=== PATIENT | male | born 1935 | race Caucasian/White ===

== ENCOUNTER 2016-03-25 08:57 | Day surgery (SDC) | payer MEDICARE ==
[~2016-03-25] VITALS: Ht 177.8 cm; Wt 75.3 kg
[~2016-03-25 08:57] MED LIST: AMLO2.5T PO; CARV3.122 PO; CEFAZOLIN 2GM PREMIX 50 ML IV PRN; DOCU-27 PO; FENTANYL PF 100 MCG/2 ML VIAL. IV PRN; HYDR-2679 PO; HYDROMORPHONE 2 MG/ML VIAL. IV PRN; Hydrocodone/Acetaminophen PO; IV RINGERS,LACTATED 1000ML 1,000 ML IV SCH; LEVO150T5 PO; LIDOCAINE 1% 1 ML SYRINGE. ID PRN; LOSA1TAB18 PO; MORPHINE SULFATE 2 MG/ML DISP.SYRIN. IV PRN; ONDANSETRON PF 4 MG/2 ML VIAL. IV PRN; POTA10TA17 PO; PROCHLORPERAZINE 10 MG/2 ML VIAL. IV PRN
--- NOTE | 2016-03-25 09:49 | EKG ---
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
[2016-03-25] MEDS ORDERED: BUPIVAC MPF-EPI 0.5%-1:200000 30 ML VIAL. ONE (10:18)
[2016-03-25] MEDS ORDERED: FENTANYL PF 100 MCG/2 ML VIAL. ONE (10:32)
[2016-03-25] MEDS ORDERED: PROPOFOL 20 ML IV ONE (10:32)
[2016-03-25] MEDS ORDERED: SUCCINYLCHOLINE 200 MG/10 ML VIAL. ONE (10:37)
[2016-03-25] MEDS ORDERED: ROCURONIUM 50 MG/5 ML VIAL. ONE (10:38)
--- NOTE | 2016-03-25 11:07 | PDOC ---
SURGICAL PROGRESS NOTE Subjective 80 yo M with RIH, symptomatic TO OR for repair with mesh R/B/a d/w pt and pt's Office note H&P reviewed and unchanged Vital Signs Vital Signs Date Time Temp Pulse Resp B/P Pulse Ox O2 Delivery O2 Flow Rate FiO2 03/25/16 09:30 98.6 61 16 126/75 Room Air 98.6 MANDA SAUCEDO MD Mar 25, 2016 11:07
[2016-03-25] MEDS ORDERED: PHENYLEPHRINE in 0.9% NACL PF 1 MG/10 ML DISP.SYRIN. IV ONE (11:21)
[2016-03-25] MEDS ORDERED: ONDANSETRON PF 4 MG/2 ML VIAL. ONE (11:31)
[2016-03-25] MEDS ORDERED: KETOROLAC 30 MG/ML SYRINGE FOR OR. INJ ONE (11:51)
[2016-03-25] MEDS ORDERED: GLYCOPYRROLATE 1 MG/5 ML VIAL. ONE (12:07)
[2016-03-25] MEDS ORDERED: NEOSTIGMINE METHYLSULFATE 5 MG/5 ML SYRINGE. ONE (12:08)
[2016-03-25] MEDS ORDERED: HYDR-2678 PO (12:43)
[2016-03-25] MEDS ORDERED: DOCU-27 PO (12:44)
[2016-03-25 13:25] VITALS: BP 124/71
[2016-03-25] MEDS ORDERED: HYDROCODONE/APAP 5/325MG TABLET. PO ONE (13:30)
--- NOTE | 2016-03-25 14:03 | PDOC ---
BRIEF OPERATIVE NOTE Pre-Op Diagnosis RIH Post-Op Diagnosis same Procedure Performed RIh repair with mesh Surgeon Myrna Anesthesia Type: General, Local Blood Loss 30 IV Fluid 600 Complications none Additional Remarks [id number] MANDA SAUCEDO MD Mar 25, 2016 14:03
--- NOTE | 2016-03-25 15:08 | OP ---
DATE OF SURGERY: 03/25/2016 REFERRING PHYSICIAN: Caitlin Vivek Braxton. Thank you for the consult. PREOPERATIVE DIAGNOSIS: Right inguinal hernia. POSTOPERATIVE DIAGNOSIS: Right inguinal hernia, direct hernia. PROCEDURE: Right inguinal hernia repair with mesh plug. SURGEON: Moustapha Saucedo MD ESTIMATED BLOOD LOSS: 30. COMPLICATIONS: None. INDICATIONS: This is a 80-year-old male who presents with complaints of right groin bulge. He reports some soreness with this and requests surgical repair. The patient and patient's were informed of the risks, benefits and alternatives of the procedure, risks including but not limited to bleeding, infection, damage to surrounding structures, risks of anesthesia, risks of hernia recurrence. The patient and patient's appeared to understand and their insightful questions were answered and they agreed to proceed. DESCRIPTION OF PROCEDURE: After obtaining informed consent, the patient was taken to the operating room, induced under general endotracheal anesthetic. The patient was prepped and draped in the usual fashion in the right groin area. Marcaine 0.5% with epinephrine was injected in this area and transverse incision was made using electrocautery. Subcutaneous tissues were divided using electrocautery. Superficial pudendal vein was divided using electrocautery. External oblique was identified by the direction of its fibers. It was opened using Metzenbaum scissors. The ileoinguinal nerve was readily identifiable and appeared to be slightly involved in the hernia, now such that it was felt the patient best be served by division of this. It was tied off proximally and distally using 0 Vicryl stitches and middle section removed. The spermatic cord was identified and dissected bluntly out of the inguinal canal. There was no evidence of hernia on it. [place] drain was brought around this. The floor of the inguinal canal demonstrated large direct hernia. The preperitoneal fat was scored circumferentially and extra large mesh plug was placed in this. It was tacked circumferentially using multiple interrupted 0 Vicryl stitches. A mesh onlay was then brought around the spermatic cord to reapproximate the internal ring secured in place by using 0 Vicryl stitch. External oblique was reapproximated overlying this using continuous 3-0 Vicryl stitch. Additional Marcaine was placed in the area. Subcutaneous tissues were reapproximated with 3-0 Vicryl. Skin incisions were reapproximated with 4-0 Vicryl in a subcuticular fashion. Sterile dressing was placed over the wound. The patient tolerated the procedure well and was discharged to recovery room in stable condition. All counts were correct. There were no immediate complications. MOUSTAPHA SAUCEDO MD DR: DARRYL/dione JOB#: [id number] / [id number] Vivek Peoples
== END 2016-03-25 13:46 | disposition home or self-care (01) ==
LOC: SURG 08:57
PROVIDERS: ATTEND Surgery
DX: K40.90 Unilateral inguinal hernia, without obstruction or gangrene, not specified as recurrent (principal); I10 Essential (primary) hypertension; E03.9 Hypothyroidism, unspecified; F15.90 Other stimulant use, unspecified, uncomplicated; M96.1 Postlaminectomy syndrome, not elsewhere classified; Z86.79 Personal history of other diseases of the circulatory system; Z85.9 Personal history of malignant neoplasm, unspecified; Z84.1 Family history of disorders of kidney and ureter; Z82.69 Family history of other diseases of the musculoskeletal system and connective tissue; Z98.52 Vasectomy status; Z98.890 Other specified postprocedural states; Z87.448 Personal history of other diseases of urinary system; Z85.46 Personal history of malignant neoplasm of prostate
CPT/HCPCS: 49505; 93005; C1781; J0330; J0690; J1885; J2370; J2405; J2704; J2710; J3010; J3490